=== PATIENT | female | born 1960 | race Caucasian/White ===

== ENCOUNTER 2018-04-10 09:50 | Day surgery (SDC) | payer MEDICAID ==
[~2018-04-10] VITALS: Ht 170.2 cm; Wt 104.3 kg
--- NOTE | ~2018-04-10 | OP ---
PATIENT NAME: MARJORIE GARDUNO MEDICAL RECORD: [id number] :56 LOCATION:D.OPS ADMISSION DATE: SURGEON: GORDON KIM DATE OF OPERATION: 04/10/2018 SURGEON: Gordon Kim DPM PREOPERATIVE DIAGNOSES: 1. Hammertoe, third toe, right foot. 2. Hammertoe, fourth toe, right foot. 3. Hammertoe, fifth toe, right foot. 4. Tailor's bunion, right foot. POSTOPERATIVE DIAGNOSES: 1. Hammertoe, third toe, right foot. 2. Hammertoe, fourth toe, right foot. 3. Hammertoe, fifth toe, right foot. 4. Tailor's bunion, right foot. PROCEDURE: 1. Arthrodesis, third toe, right foot. 2. Arthrodesis fourth toe, right foot. 3. Arthroplasty, fifth toe, right foot. 4. Tailor's bunionectomy, right foot. ANESTHESIA: General. HEMOSTASIS: Pneumatic ankle tourniquet inflated to 250 mmHg. ESTIMATED BLOOD LOSS: Minimal. MATERIALS: 3-0 Vicryl, 4-0 nylon, two 0.045 inch K-wires. INJECTABLES: A 30 mL of 0.5% bupivacaine plain. The patient has longstanding history of pain associated with the above-mentioned deformities. She has tried wider shoes to no avail. She is here today for surgical correction of these chronically painful conditions. We again reviewed the procedures, the risks and benefits and complications. All questions were answered. She was appropriately consented for the above-mentioned procedures. The patient was brought in the operating room and placed on the operating table in supine position. A timeout was called with Dr. Kmi, who identified the patient, the surgical site, and the surgeries to be performed. Once appropriate anesthesia was obtained, the foot was prepped and draped in the usual aseptic manner. The pneumatic ankle tourniquet was inflated to 250 mmHg on the well-padded right foot. PROCEDURE NUMBER 1: Arthrodesis, third toe, right foot. Attention was directed to the dorsal aspect of the third toe of the right foot where a 3-cm linear incision was made. This incision was carried deep to soft tissue with care being taken to retract all vital neurovascular structures. All bleeders were cauterized along the way. The extensor tendon was transected from medial to OPERATIVE REPORT [id number] MARJORIE GARDUNO at the level of the proximal interphalangeal joint. All cartilage was removed from the head of the proximal phalanx and the base of the middle phalanx. Next, one 0.045 inch K-wire was driven through the middle phalanx exiting the distal phalanx and the toe. It was then retrograded into the proximal phalanx. The surgical site was then irrigated with copious amounts of normal sterile saline via bulb syringe. Good bony apposition was noted between the head of the proximal phalanx and the base of the middle phalanx. The extensor tendon was then reapproximated and coapted using 3-0 Vicryl. The subcutaneous was then reapproximated and coapted using 4-0 Vicryl. The skin was then reapproximated and coapted using 4-0 nylon. The pin was then bent and cut as necessary. PROCEDURE NUMBER 2: Arthrodesis fourth toe, right foot. The exact same procedure that was performed in procedure #1 (arthrodesis, third toe, right foot) was performed on the fourth toe of the right foot without exception. PROCEDURE NUMBER 3: Arthroplasty, fifth toe, right foot. Attention was directed to the dorsal aspect of the fifth toe of the right foot where 2 converging semi-elliptical incisions were made on the dorsal aspect of the fifth toe. These incisions were oriented from proximal lateral to distal medial. A wedge of skin was then removed. The extensor tendon was transected from medial to lateral at the level of the proximal interphalangeal joint. The head of the proximal phalanx was then resected. The extensor tendon was then reapproximated and coapted using 3-0 Vicryl. The subcutaneous was then reapproximated and coapted using 3-0 Vicryl. The skin was then reapproximated and coapted using 4-0 nylon. PROCEDURE NUMBER 4: Tailor's bunionectomy, right foot. Attention was directed to the dorsal lateral aspect of the right foot where a 3-cm linear incision was made directly over the head of the fifth metatarsal. This incision was carried deep to soft tissue with care being taken to retract all vital neurovascular structures. All bleeders were cauterized along the way. The periosteum was then reflected from the head of the fifth metatarsal, thus exposing the hypertrophied lateral eminence. Utilizing a sagittal saw, all hypertrophied bone was resected. All sharp bone edges were smoothed with a rasp. The surgical site was then irrigated with copious amounts of normal sterile saline via bulb syringe. The periosteum was reapproximated and coapted using 3-0 Vicryl. The subcutaneous was reapproximated and coapted using 3-0 Vicryl. The skin was reapproximated and coapted using 4-0 nylon. Dressing consisting of Xeroform, 4 x 4's, Kerlix, and Coban was applied to the right foot. The pneumatic ankle tourniquet was deflated and cap refill time is immediate to all digits of the right foot. The patient tolerated the procedure and anesthesia well. She left the operating room with vital signs stable and capillary refill time intact. The patient was discharged home with instructions to ice and elevate the right foot. She has a postop shoe and boot to further help with offloading. She was provided with a prescription for Demerol 50 mg #30 one tab p.o. q. 4-6 hours p.r.n. pain. She has my cell phone number for any after difficulties and there were no complications with this procedure. She will follow up with us next OPERATIVE REPORT [id number] MARJORIE GARDUNO. TRANSINT:[id number] Voice Confirmation ID: [id number] DOCUMENT ID: [id number] GORDON KIM at 0847 CC: [id number] DICTATION DATE: 04/10/18 155 [employer]LL[employer] SE[employer] OPERATOR: 04/10/18 1620 [facility] [place] 04/10/18 [facility] [address] [id number]
[~2018-04-10 09:50] MED LIST: ADDERALL 30 MG30 MG PO; HYDROCODONE-APA1 TAB PO; RITALIN LA10 MG PO; XANAX0.5 MG PO
[2018-04-10 10:32] VITALS: BP 126/57; Ht 170.2 cm; Wt 104.3 kg
[2018-04-10 10:34] LABS: HEMATOCRIT 38.1 % (36.0-48.0); HEMOGLOBIN 12.9 g/dL (12-16); MCH 35.7 pg (26.0-34.0); MCHC 33.9 g/dL (31.0-37.0); MCV 105.5 fL (80.0-100.0); MEAN PLATELET VOLUME 10.6 fL (7.4-10.4); RBC 3.61 10x6/uL (4.00-5.40); RDW 14.4 % (11.5-14.5); WBC 6.7 10x3/uL (4.8-10.8)
== END 2018-04-10 17:10 | disposition home or self-care (01) ==
LOC: D.OPS 09:50 → D.PAN 12:45 → D.OPS 12:45
PROVIDERS: Anesthesiology
DX: M20.41 Other hammer toe(s) (acquired), right foot (principal); M21.621 Bunionette of right foot; Z01.812 Encounter for preprocedural laboratory examination